=== PATIENT | male | born 1990 | race African-American/Black ===

== ENCOUNTER 2021-06-22 05:01 | Emergency (ER) | payer OTHER ==
[~2021-06-22] VITALS: Ht 190.5 cm; Wt 113.6 kg
[2021-06-22 05:35] VITALS: BP 160/94
[2021-06-22] MEDS ORDERED: PERTUSS(ACELL),DIPH,TET VAC/PF 0.5 ML SYRINGE IM. ONE (05:45)
== END 2021-06-22 06:17 | disposition home or self-care (01) ==
LOC: EMS 05:05
DX: S80.211A Abrasion, right knee, initial encounter (principal); V47.5XXA Car driver injured in collision with fixed or stationary object in traffic accident, initial encounter; Y93.89 Activity, other specified; Y92.89 Other specified places as the place of occurrence of the external cause; Y99.8 Other external cause status
CPT/HCPCS: 90471; 90715; 99283